=== PATIENT | male | born 1965 | race African-American/Black ===

== ENCOUNTER 2019-08-05 09:52 | Emergency (ER) | payer SELFPAY ==
[~2019-08-05] VITALS: Ht 188 cm; Wt 106.8 kg
--- NOTE | 2019-08-05 10:12 | PHYS DOC ---
Past History Past Medical History: CVA (2013) Adult General Chief Complaint Chief Complaint: HEADACHE HPI HPI Patient is a 53-year-old -Citizen Of [place] male brought in by EMS due to complaints of sudden onset of headache approximately one hour prior to arrival; 9:00 this morning. Patient also complains of increased pain on the right side of his body. He has a history of a stroke in 2012 with residual slowed speech/slurred speech and right-sided weakness. Patient reports no worsening of residual neurologic deficits today. No medications given prior to arrival. He rates his pain at 50/10. Denies chest pain, shortness of breath, abdominal pain. No fever or chills recently and no new visual disturbances. Review of Systems Review of Systems All other ROS is negative unless otherwise stated in HPI Physical Exam Physical Exam See above Constitutional: Well developed, well nourished, no acute distress, non-toxic appearance. [] HENT: Normocephalic, atraumatic, bilateral external ears normal, oropharynx moist, no oral exudates, nose normal. [] Eyes: PERRLA, EOMI, conjunctiva normal, no discharge. [] Neck: Normal range of motion, no tenderness, supple, no stridor. [] Cardiovascular:Heart rate regular rhythm, no murmur [] Lungs & Thorax: Bilateral breath sounds clear to auscultation [] Abdomen: Bowel sounds normal, soft, no tenderness, no masses, no pulsatile masses. [] Skin: Warm, dry, no erythema, no rash. [] Back: No tenderness, no CVA tenderness. [] Extremities: Patient has some generalized weakness on the right arm is 4/5 and some difficulty with coordination. 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 The right lower extremity appears slightly weaker than the left as well. Neurologic: Alert and oriented X 3, normal sensory function, no reported worsening of focal deficits.] Psychologic: Affect normal, judgement normal, mood normal. [] Current Patient Data Lab Results Laboratory Tests Test 08/05/19 10:27 White Blood Count 5.6 x10^3/uL Red Blood Count 6.07 x10^6/uL Hemoglobin 13.1 g/dL Hematocrit 42.1 % Mean Corpuscular Volume 69 fL Mean Corpuscular Hemoglobin 22 pg Mean Corpuscular Hemoglobin Concent 31 g/dL Red Cell Distribution Width 17.2 % Platelet Count 59 x10^3/uL Neutrophils (%) (Auto) 64 % Lymphocytes (%) (Auto) 28 % Monocytes (%) (Auto) 6 % Eosinophils (%) (Auto) 2 % Basophils (%) (Auto) 1 % Neutrophils # (Auto) 3.5 x10^3uL Lymphocytes # (Auto) 1.5 x10^3/uL Monocytes # (Auto) 0.3 x10^3/uL Eosinophils # (Auto) 0.1 x10^3/uL Basophils # (Auto) 0.0 x10^3/uL Platelet Estimate Pending Prothrombin Time 11.9 SEC Prothromb Time International Ratio 1.1 Activated Partial Thromboplast Time 26 SEC Sodium Level 140 mmol/L Potassium Level 3.7 mmol/L Chloride Level 103 mmol/L Carbon Dioxide Level 26 mmol/L Anion Gap 11 Blood Urea Nitrogen 16 mg/dL Creatinine 1.1 mg/dL Estimated GFR (Cockcroft-Gault) 70.0 Glucose Level 120 mg/dL Calcium Level 8.5 mg/dL Current Medications Medications (Trade) Dose Ordered Sig/Kusum Route PRN Reason Start Time Stop Time Status Last Admin Dose Admin Sodium Chloride 1,000 ml @ 1,000 mls/hr 1X ONCE IV 08/05/19 10:15 08/05/19 11:14 DC 08/05/19 10:15 Fentanyl Citrate (Fentanyl 2ml Vial) 75 mcg 1X ONCE IVP 08/05/19 10:15 08/05/19 10:17 DC 08/05/19 10:15 EKG EKG [] Radiology/Procedures Radiology/Procedures CT CODE STROKE HEAD WO History: Headache. History of CVA left basal ganglia. Comparison: None. Technique: Noncontrast CT imaging was performed of the head. Exposure: One or more of the following individualized dose reduction techniques were utilized for this examination: 1. Automated exposure control 2. Adjustment of the mA and/or kV according to patient size 3. Use of iterative reconstruction technique. Findings: No intracranial hemorrhage. No mass effect. No hydrocephalus. Chronic left peña radiata/lentiform nucleus infarct. Encephalomalacia within the left temporal lobe. Chronic appearing left thalamic lacunar infarct. Imaged orbits are unremarkable. Secretions within the right sphenoid sinus. Mastoid air cells are clear. No acute calvarial fracture. Impression: 1. No acute intracranial abnormality. 2. Chronic appearing left peña radiata/lentiform nucleus and thalamic infarcts. Comparison with prior imaging studies would be of benefit. If persistent clinical concern for acute ischemia, MRI can better evaluate. 3. Encephalomalacia within the left anterior temporal lobe.[] Course & Med Decision Making Course & Med Decision Making Patient seen for some onset of headache approximately 9:00 this morning with history of stroke in 2013. No worsening of residual deficits reported. Mother CT scan of the patient's head and check basic labs and given IV fluid bolus. Patient also given fentanyl for pain. Code stroke was not called initially as the patient is not displaying signs of neurologic deficit that has worsened or changed. CT scan stat however. Differential diagnosis includes stroke, headache 1131: CT the patient's head is unremarkable. Lab results are unremarkable as well. His headache has improved approximately 50% at this time after fentanyl. We'll admit for observation given his history of stroke in 2013. 1302: Patient still in ED, wanting to sign out AMA. Risks/benefits discuss with patient, including worsening of symptoms, CVA, and . Patient voices understanding. Dragon Disclaimer Dragon Disclaimer This electronic medical record was generated, in whole or in part, using a voice recognition dictation system. Departure Departure: Impression: Primary Impression: Headache Additional Impression: History of stroke Disposition: 07 AGAINST MEDICAL ADVICE Condition: STABLE Patient Instructions: General Headache Without Cause, Ischemic Stroke Additional Instructions: Please return to the emergency department for worsening of symptoms. Please follow-up with your doctor as soon as possible Problem Qualifiers MARLENE LOPEZ DO Aug 05, 2019 10:12
[2019-08-05] MEDS ORDERED: IV NORMAL SALINE 1,000ML 1,000 ML IV ONE (10:15)
--- NOTE | 2019-08-05 10:35 | RAD ---
CT CODE STROKE HEAD WO History: Headache. History of CVA left basal ganglia. Comparison: None. Technique: Noncontrast CT imaging was performed of the head. Exposure: One or more of the following individualized dose reduction techniques were utilized for this examination: 1. Automated exposure control 2. Adjustment of the mA and/or kV according to patient size 3. Use of iterative reconstruction technique. Findings: No intracranial hemorrhage. No mass effect. No hydrocephalus. Chronic left peña radiata/lentiform nucleus infarct. Encephalomalacia within the left temporal lobe. Chronic appearing left thalamic lacunar infarct. Imaged orbits are unremarkable. Secretions within the right sphenoid sinus. Mastoid air cells are clear. No acute calvarial fracture. Impression: 1. No acute intracranial abnormality. 2. Chronic appearing left peña radiata/lentiform nucleus and thalamic infarcts. Comparison with prior imaging studies would be of benefit. If persistent clinical concern for acute ischemia, MRI can better evaluate. 3. Encephalomalacia within the left anterior temporal lobe. FOR INTERNAL CODING PURPOSES Critical result: Findings discussed with ER physician taking care of the patient at 08/05/2019 10:26 AM. RESULT CODE: (C) Electronically signed by: Joshua Holbrook DO (08/05/2019 10:31 AM) [id number]
[2019-08-05 10:52] LABS: CALCIUM 8.5 mg/dL (8.5-10.1); CREATININE 1.1 mg/dL (0.7-1.3); POTASSIUM 3.7 mmol/L (3.5-5.1)
[2019-08-05 10:53] LABS: BASO % 1 % (0-3); EOS # 0.1 x10^3/uL (0.0-0.7); EOS % 2 % (0-3); HEMATOCRIT 42.1 % (39.0-53.0); HEMOGLOBIN 13.1 g/dL (13.0-17.5); LYMPH # 1.5 x10^3/uL (1.0-4.8); LYMPH % 28 % (24-48); MEAN CORPUSCULAR HEMOGLOBIN 22 pg (25-35); MEAN CORPUSCULAR HGB CONC 31 g/dL (31-37); MEAN CORPUSCULAR VOLUME 69 fL (79-100); MONO # 0.3 x10^3/uL (0.0-1.1); MONO % 6 % (0-9); NEUT # 3.5 x10^3uL (1.8-7.7); NEUT % 64 % (31-73); RED BLOOD COUNT 6.07 x10^6/uL (4.30-5.70); RED CELL DISTRIBUTION WIDTH 17.2 % (11.5-14.5); WHITE BLOOD COUNT 5.6 x10^3/uL (4.0-11.0)
[2019-08-05 11:25] LABS: PLATELET COUNT 59 x10^3/uL (140-400)
[2019-08-05 11:31] LABS: ANISOCYTOSIS MOD; OVALOCYTES OCC; POLYCHROMASIA SLIGHT; TARGET CELLS FEW; TEAR DROP CELLS FEW
[2019-08-05 11:32] LABS: PLT ESTIMATE DECREASED (ADEQUATE)
[2019-08-05 12:13] VITALS: BP 158/90
== END 2019-08-05 13:13 | disposition left against medical advice (07) ==
LOC: ER 09:52 → EEVIPCON 09:52 → UNDOADMOB 12:59 → 1 SOUTH 12:59 → ER 13:13
DX: R51 Headache (principal); R53.1 Weakness
CPT/HCPCS: 36415; 70450; 80048; 85025; 85610; 85730; 96374; 99285; J3010; J7030